=== PATIENT | female | born 1975 | race Caucasian/White ===

== ENCOUNTER → 2024-02-15 | Outpatient (BNVA) | payer BC, SELFPAY | END | disposition home or self-care (01) | PROVIDERS: PCP Physician Assistant; Referring Provider Physician Assistant; Visit Provider Urology Female Pelvic Medicine and Reconstructive Surgery | DX: Z76.89 Persons encountering health services in other specified circumstances (principal) | CPT/HCPCS: 99212; G0463 ==

== ENCOUNTER → 2025-02-14 | Outpatient (BNVA) | payer BC, SELFPAY | END | disposition home or self-care (01) | PROVIDERS: PCP Physician Assistant; Referring Provider Physician Assistant; Visit Provider Urology | DX: R10.9 Unspecified abdominal pain (principal); T14.90XA Injury, unspecified, initial encounter; W19.XXXA Unspecified fall, initial encounter; K42.9 Umbilical hernia without obstruction or gangrene; N28.1 Cyst of kidney, acquired; K57.92 Diverticulitis of intestine, part unspecified, without perforation or abscess without bleeding; Z98.84 Bariatric surgery status; Z78.0 Asymptomatic menopausal state | CPT/HCPCS: 99212; G0463 ==